=== PATIENT | male | born 1955 | race African-American/Black ===

== ENCOUNTER 2019-06-09 11:06 | Inpatient (IN) | payer MEDICARE, OTHER ==
[~2019-06-09] VITALS: Ht 180.3 cm; Wt 66.2 kg
[2019-06-09] VITALS (12 sets, daily range): BP systolic 99–148; BP diastolic 53–80
[~2019-06-09 11:06] MED LIST: AMLO10TA4 PO; AMLO2.5T45 PO; ASPI-1497 PO; CALC0.5C7 PO; CINA30 PO; CLON0.2T PO; OMEP20TA15 PO; SEVE800T8 PO
[2019-06-09] MEDS ORDERED: KETOROLAC 30MG/ML VIAL IV STA (11:16)
[2019-06-09] MEDS ORDERED: ACETAMINOPHEN 650MG SUPP PR STA (11:16)
[2019-06-09] MEDS ORDERED: SODIUM CHLORIDE 0.9% 1000ML BAG (SEPSIS BOLUS) IV ONE (11:30)
[2019-06-09] MEDS ORDERED: VANCOMYCIN 1 G PREMIX 200 ML IV ONE (11:30)
[2019-06-09] MEDS ORDERED: PIPERACILLIN/TAZ 3.375G PREMIX 50 ML IV ONE (11:30)
[2019-06-09 11:38] LABS: HEMATOCRIT. 44.9 % (42.0-52.0); HEMOGLOBIN. 14.5 g/dL (14.0-18.0); MEAN CORPUSCULAR HEMOGLOBIN 28.4 pg (28.0-32.0); MEAN CORPUSCULAR VOLUME 87.9 fL (80.0-94.0); MEAN PLATELET VOLUME 9.1 fl (7.4-10.4); PLATELET 184 x1000/uL (130-400); RED CELL DISTRIBUTION WIDTH 14.1 % (11.6-14.6)
[2019-06-09 11:46] LABS: CHLORIDE 109 mEq/L (98-107)
[2019-06-09 11:53] LABS: INR 1.3; PROTHROMBIN TIME 13.2 sec (9.6-11.0)
[2019-06-09 12:05] LABS: PLATELET ESTIMATE NORMAL
[2019-06-09 16:01] LABS: CLARITY URINE TURBID (CLEAR); COLOR URINE ORANGE (YELLOW); KETONES URINE TRACE (NEGATIVE); LEUKOCYTE ESTERASE URINE 1+ (NEGATIVE); NITRITE URINE NEGATIVE (NEGATIVE); OCCULT BLOOD URINE 3+ (NEGATIVE); PH URINE 5.5 (4.5-8.0); PROTEIN URINE 3+ (NEGATIVE); SPECIFIC GRAVITY URINE 1.021 (1.005-1.030)
[2019-06-09] MEDS ORDERED: ONDANSETRON HCL 4MG/2ML INJ IV PRN (16:30)
[2019-06-09] MEDS ORDERED: PIPERACILLIN/TAZ 3.375G PREMIX 50 ML IV SCH (16:30)
[2019-06-09] MEDS ORDERED: VANCOMYCIN 1 G PREMIX 200 ML IV SCH (16:30)
[2019-06-09] MEDS ORDERED: METRONIDAZOLE 500 MG PREMIX 100 ML IV SCH (16:30)
[2019-06-09] MEDS ORDERED: DIPHENHYDRAMINE 50MG/ML VIAL IV PRN (16:30)
[2019-06-09] MEDS ORDERED: NOREPINEPHRINE 4MG/250ML PMX 250 ML IV ONE (16:45)
[2019-06-09] MEDS ORDERED: NOREPINEPHRINE 4MG in DEXT 5% WATER 250ML IV PRN (17:30)
[2019-06-09] MEDS: SODIUM CHLORIDE 0.9% 1,000 ML IV SCH (18:00)
[2019-06-09] MEDS: METRONIDAZOLE 500 MG PREMIX 100 ML IV SCH (20:33)
[2019-06-09] MEDS: CEFEPIME 1,000 MG in DEXTROSE 5% WATER 50 ML IV SCH (20:33)
[2019-06-09] MEDS ORDERED: FAMOTIDINE 20MG/2ML VIAL IV SCH (21:00)
[2019-06-09] MEDS: VANCOMYCIN HCL 1000 MG/20 ML ORAL PO SCH (22:21)
[2019-06-10] VITALS (64 sets, daily range): BP systolic 83–128; BP diastolic 25–93
[2019-06-10] MEDS: ACETAMINOPHEN 325MG TABLET PO PRN ×2 (01:48→12:14)
[2019-06-10] MEDS ORDERED: AMLO10TA80 PO (03:19)
[2019-06-10] MEDS ORDERED: MYCO250C PO (03:19)
[2019-06-10] MEDS ORDERED: CYCL25CA PO (03:19)
[2019-06-10] MEDS ORDERED: DILT180T11 PO (03:19)
[2019-06-10] MEDS ORDERED: PRED5TAB48 PO (03:19)
[2019-06-10] MEDS ORDERED: TAMS-11 PO (03:19)
[2019-06-10] MEDS: METRONIDAZOLE 500 MG PREMIX 100 ML IV SCH ×3 (03:44→20:53)
[2019-06-10] MEDS: SODIUM CHLORIDE 0.9% 1,000 ML IV SCH (03:45)
[2019-06-10 05:38] LABS: HEMATOCRIT. 36.7 % (42.0-52.0); HEMOGLOBIN. 11.9 g/dL (14.0-18.0); MEAN CORPUSCULAR HEMOGLOBIN 28.5 pg (28.0-32.0); MEAN CORPUSCULAR VOLUME 87.9 fL (80.0-94.0); MEAN PLATELET VOLUME 9.9 fl (7.4-10.4); PLATELET 105 x1000/uL (130-400); RED BLOOD CELL COUNT 4.17 mill/uL (4.7-6.1); RED CELL DISTRIBUTION WIDTH 14.4 % (11.6-14.6)
[2019-06-10 05:46] LABS: CHLORIDE 118 mEq/L (98-107)
[2019-06-10 06:03] LABS: PHOSPHORUS 2.7 mg/dL (2.5-4.9)
[2019-06-10] MEDS: DEXT 5%/0.9% NACL 1,000 ML IV SCH ×3 (08:07→16:51)
[2019-06-10] MEDS: VANCOMYCIN HCL 1000 MG/20 ML ORAL PO SCH ×2 (08:24→13:47)
[2019-06-10] MEDS: FAMOTIDINE 20MG/2ML VIAL IV SCH (08:24)
[2019-06-10] MEDS ORDERED: HYDROCORTISONE SOD SUCCINATE 100 MG/2 ML VIAL IV NR (12:15)
[2019-06-10] MEDS: MYCOPHENOLATE MOFETIL 250MG CAPSULE PO SCH ×2 (12:19→16:36)
[2019-06-10] MEDS: FOLIC ACID/VITAMIN B COMP W-C TABLET PO SCH (13:47)
[2019-06-10] MEDS: THIAMINE HCL 100MG TABLET PO SCH ×2 (13:47→16:36)
[2019-06-10] MEDS: FOLIC ACID 1MG TABLET PO SCH (13:48)
[2019-06-10] MEDS ORDERED: CYCLOSPORINE, MODIFIED 25MG CAPSULE PO SCH (14:00)
[2019-06-10 14:20] LABS: BG BASE EXCESS -8.9 mmol/L (-2.0-2.0); BG CARBOXYHEMOGLOBIN 0.3 % (0.5-1.5); BG HCO3 ACT 14.8 mmol/L (22.0-26.0); BG METHEMOGLOBIN 0.3 % (0.0-1.5); BG OXYGEN SATURATION 89.9 % (92.0-98.5); BG OXYHEMOGLOBIN 89.4 % (94.0-97.0); BG PCO2 26.3 mmHg (35.0-45.0); BG PH 7.368 (7.350-7.450); BG SAMPLE SITE RIGHT RADIAL; BG TOTAL HEMOGLOBIN 12.8 g/dL (12.0-18.0)
[2019-06-10 14:39] LABS: BG FRACTION INSPIRED OXYGEN 60; BG VENT MODE MASK - SIMPLE
[2019-06-10 14:44] LABS: PLATELET ESTIMATE DECREASED
[2019-06-10] MEDS ORDERED: MAGNESIUM 2 G PREMIX 50 ML IV SCH (16:30)
[2019-06-10] MEDS ORDERED: NOREPINEPHRINE 4 MG in DEXT 5% WATER 246 ML IV PRN (16:30)
[2019-06-10 17:39] LABS: BG BASE EXCESS -9.6 mmol/L (-2.0-2.0); BG CARBOXYHEMOGLOBIN 0.1 % (0.5-1.5); BG DEOXYHEMOGLOBIN 4.3 % (0.0-5.0); BG FRACTION INSPIRED OXYGEN 100; BG HCO3 ACT 14.7 mmol/L (22.0-26.0); BG METHEMOGLOBIN 0.1 % (0.0-1.5); BG OXYGEN SATURATION 95.7 % (92.0-98.5); BG OXYHEMOGLOBIN 95.5 % (94.0-97.0); BG PCO2 27.4 mmHg (35.0-45.0); BG PH 7.346 (7.350-7.450); BG PO2 80.4 mmHg (75.0-100.0); BG SAMPLE SITE RIGHT RADIAL; BG TOTAL HEMOGLOBIN 11.4 g/dL (12.0-18.0); BG VENT MODE MASK - NRB
[2019-06-10] MEDS: CEFEPIME 1,000 MG in DEXTROSE 5% WATER 50 ML IV SCH (20:52)
[2019-06-10] MEDS: CYCLOSPORINE PO SCH (20:53)
[2019-06-10] MEDS: HYDROCORTISONE SOD SUCCINATE 100 MG/2 ML VIAL IV SCH (22:21)
[2019-06-11] VITALS (25 sets, daily range): BP systolic 106–135; BP diastolic 68–92
[2019-06-11] MEDS: METRONIDAZOLE 500 MG PREMIX 100 ML IV SCH ×3 (04:58→20:43)
[2019-06-11] MEDS: DEXT 5%/0.9% NACL 1,000 ML IV SCH ×2 (04:59→14:30)
[2019-06-11] MEDS: HYDROCORTISONE SOD SUCCINATE 100 MG/2 ML VIAL IV SCH ×3 (05:00→21:55)
[2019-06-11 06:15] LABS: HEMATOCRIT. 33.2 % (42.0-52.0); MEAN CORPUSCULAR HEMOGLOBIN 28.9 pg (28.0-32.0); MEAN CORPUSCULAR VOLUME 86.8 fL (80.0-94.0); MEAN PLATELET VOLUME 10.1 fl (7.4-10.4); PLATELET 92 x1000/uL (130-400); RED BLOOD CELL COUNT 3.82 mill/uL (4.7-6.1); RED CELL DISTRIBUTION WIDTH 14.4 % (11.6-14.6)
[2019-06-11 06:20] LABS: CHLORIDE 122 mEq/L (98-107)
[2019-06-11] MEDS ORDERED: PREDNISONE 5MG TABLET PO SCH (09:00)
[2019-06-11] MEDS: CYCLOSPORINE PO SCH ×2 (09:04→20:43)
[2019-06-11] MEDS: FAMOTIDINE 20MG/2ML VIAL IV SCH (09:04)
[2019-06-11] MEDS: MYCOPHENOLATE MOFETIL 250MG CAPSULE PO SCH ×2 (09:04→17:48)
[2019-06-11] MEDS: FOLIC ACID 1MG TABLET PO SCH (09:04)
[2019-06-11] MEDS: THIAMINE HCL 100MG TABLET PO SCH ×2 (09:04→17:48)
[2019-06-11] MEDS: FOLIC ACID/VITAMIN B COMP W-C TABLET PO SCH (09:04)
[2019-06-11 11:17] LABS: PLATELET ESTIMATE SLIGHTLY DECREASED
[2019-06-11] MEDS: CEFEPIME 1,000 MG in DEXTROSE 5% WATER 50 ML IV SCH (20:43)
[2019-06-12] VITALS (24 sets, daily range): BP systolic 117–153; BP diastolic 72–95
[2019-06-12] MEDS: DEXT 5%/0.9% NACL 1,000 ML IV SCH ×2 (01:44→12:38)
[2019-06-12] MEDS: IPRATROPIUM/ALBUTEROL 0.5-3(2.5)MG/3ML NEB HHN PRN (01:45)
[2019-06-12 03:25] LABS: PHOSPHORUS 2.6 mg/dL (2.5-4.9)
[2019-06-12] MEDS: METRONIDAZOLE 500 MG PREMIX 100 ML IV SCH ×3 (04:55→20:33)
[2019-06-12] MEDS: HYDROCORTISONE SOD SUCCINATE 100 MG/2 ML VIAL IV SCH ×3 (04:57→22:23)
[2019-06-12] MEDS: MYCOPHENOLATE MOFETIL 250MG CAPSULE PO SCH ×2 (08:44→17:26)
[2019-06-12] MEDS: FOLIC ACID/VITAMIN B COMP W-C TABLET PO SCH (08:45)
[2019-06-12] MEDS: FOLIC ACID 1MG TABLET PO SCH (08:45)
[2019-06-12] MEDS: CYCLOSPORINE PO SCH ×2 (08:45→22:25)
[2019-06-12] MEDS: FAMOTIDINE 20MG/2ML VIAL IV SCH (08:45)
[2019-06-12] MEDS: THIAMINE HCL 100MG TABLET PO SCH (08:45)
[2019-06-12] MEDS: CEFEPIME 1,000 MG in DEXTROSE 5% WATER 50 ML IV SCH (20:33)
[2019-06-13] VITALS (98 sets, daily range): BP systolic 73–176; BP diastolic 52–105
[2019-06-13] MEDS: ACETYLCYSTEINE 200MG/ML 20% VIAL 4ML INH SCH ×3 (00:20→15:37)
[2019-06-13] MEDS: IPRATROPIUM/ALBUTEROL 0.5-3(2.5)MG/3ML NEB HHN PRN ×5 (00:21→20:43)
[2019-06-13 01:20] LABS: BG BASE EXCESS -6.9 mmol/L (-2.0-2.0); BG CARBOXYHEMOGLOBIN 0.3 % (0.5-1.5); BG DEOXYHEMOGLOBIN 16.2 % (0.0-5.0); BG FRACTION INSPIRED OXYGEN 100; BG HCO3 ACT 16.8 mmol/L (22.0-26.0); BG METHEMOGLOBIN 0.2 % (0.0-1.5); BG OXYGEN SATURATION 83.7 % (92.0-98.5); BG OXYHEMOGLOBIN 83.3 % (94.0-97.0); BG PCO2 28.8 mmHg (35.0-45.0); BG PH 7.383 (7.350-7.450); BG PO2 46.9 mmHg (75.0-100.0); BG SAMPLE SITE RIGHT BRACHIAL; BG TOTAL HEMOGLOBIN 13.2 g/dL (12.0-18.0); BG VENT MODE MASK - NRB
[2019-06-13] MEDS ORDERED: SUCCINYLCHOLINE CHLORIDE 200MG/10ML IV ONE (01:55)
[2019-06-13] MEDS ORDERED: ETOMIDATE 2MG/ML 10ML VIAL IV ONE (01:55)
[2019-06-13] MEDS: PROPOFOL 10MG/ML 100ML 100 ML IV PRN ×5 (02:11→20:00)
[2019-06-13 02:27] LABS: BG BASE EXCESS -9.8 mmol/L (-2.0-2.0); BG CARBOXYHEMOGLOBIN 0.3 % (0.5-1.5); BG DEOXYHEMOGLOBIN 9.4 % (0.0-5.0); BG FRACTION INSPIRED OXYGEN 100; BG HCO3 ACT 16.2 mmol/L (22.0-26.0); BG METHEMOGLOBIN 0.3 % (0.0-1.5); BG OXYGEN SATURATION 90.5 % (92.0-98.5); BG PCO2 36.2 mmHg (35.0-45.0); BG PH 7.269 (7.350-7.450); BG PO2 68.4 mmHg (75.0-100.0); BG SAMPLE SITE LEFT BRACHIAL; BG TIDAL VOLUME(mL) 500 mL; BG TOTAL HEMOGLOBIN 12.5 g/dL (12.0-18.0); BG VENT MODE VENT - A/C; BG VENT RATE 14 set
[2019-06-13] MEDS: METRONIDAZOLE 500 MG PREMIX 100 ML IV SCH ×3 (04:57→20:23)
[2019-06-13] MEDS: HYDROCORTISONE SOD SUCCINATE 100 MG/2 ML VIAL IV SCH ×3 (05:53→23:06)
[2019-06-13] MEDS: FAMOTIDINE 20MG/2ML VIAL IV SCH (09:06)
[2019-06-13] MEDS: MYCOPHENOLATE MOFETIL 250MG CAPSULE PO SCH ×2 (09:06→16:34)
[2019-06-13] MEDS: CYCLOSPORINE PO SCH ×2 (09:07→21:43)
[2019-06-13] MEDS ORDERED: DEXT 5%/0.45% NACL 1000ML 1,000 ML IV SCH (10:30)
[2019-06-13 10:39] LABS: HEMOGLOBIN. 10.6 g/dL (14.0-18.0); MEAN CORPUSCULAR HEMOGLOBIN 28.4 pg (28.0-32.0); MEAN CORPUSCULAR VOLUME 85.7 fL (80.0-94.0); MEAN PLATELET VOLUME 8.8 fl (7.4-10.4); PLATELET 69 x1000/uL (130-400); RED BLOOD CELL COUNT 3.74 mill/uL (4.7-6.1)
[2019-06-13] MEDS ORDERED: PROPOFOL 10MG/ML 100ML 100 ML IV PRN (11:00)
[2019-06-13 12:01] LABS: PLATELET ESTIMATE DECREASED
[2019-06-13] MEDS: POTASSIUM CHLORIDE 20MEQ/PACKET NG SCH ×2 (12:29→18:30)
[2019-06-13 12:44] LABS: BG BASE EXCESS -6.3 mmol/L (-2.0-2.0); BG CARBOXYHEMOGLOBIN 0.3 % (0.5-1.5); BG DEOXYHEMOGLOBIN 1.2 % (0.0-5.0); BG FRACTION INSPIRED OXYGEN 100; BG HCO3 ACT 17.9 mmol/L (22.0-26.0); BG METHEMOGLOBIN 0.1 % (0.0-1.5); BG OXYGEN SATURATION 98.8 % (92.0-98.5); BG OXYHEMOGLOBIN 98.4 % (94.0-97.0); BG PCO2 31.4 mmHg (35.0-45.0); BG PH 7.374 (7.350-7.450); BG PO2 290.4 mmHg (75.0-100.0); BG SAMPLE SITE RIGHT RADIAL; BG TIDAL VOLUME(mL) 500 mL; BG TOTAL HEMOGLOBIN 11.2 g/dL (12.0-18.0); BG VENT MODE VENT - A/C; BG VENT RATE 14 set
[2019-06-13 13:07] LABS: CYCLOSPORINE 39 ng/mL (100-400)
[2019-06-13] MEDS: DEXT 5% WATER + KCL 20MEQ/L 1,000 ML IV SCH (13:45)
[2019-06-13] MEDS ORDERED: KCL 20MEQ/100ML PREMIX 100 ML IV NR (14:00)
[2019-06-13] MEDS ORDERED: POTASSIUM PHOS,M-BASIC-D-BASIC 20 MMOL in DEXT 5% WATER 243.3333 ML IV NR (14:00)
[2019-06-13] MEDS ORDERED: SODIUM BICARBONATE 8.4% 1 MEQ/ML 50ML SYR IV NR (16:15)
[2019-06-13] MEDS: CITRIC ACID/SODIUM CITRATE SOLN 30ML UDC PO SCH (16:34)
[2019-06-13] MEDS: CEFEPIME 1,000 MG in DEXTROSE 5% WATER 50 ML IV SCH (20:23)
[2019-06-14] VITALS (91 sets, daily range): BP systolic 104–170; BP diastolic 68–90
[2019-06-14] MEDS: METRONIDAZOLE 500 MG PREMIX 100 ML IV SCH ×3 (04:03→20:58)
[2019-06-14] MEDS: IPRATROPIUM/ALBUTEROL 0.5-3(2.5)MG/3ML NEB HHN PRN ×3 (05:11→15:53)
[2019-06-14] MEDS: ACETYLCYSTEINE 200MG/ML 20% VIAL 4ML INH SCH ×3 (05:11→15:54)
[2019-06-14 05:38] LABS: HEMATOCRIT. 32.3 % (42.0-52.0); MEAN CORPUSCULAR HEMOGLOBIN 29.3 pg (28.0-32.0); MEAN CORPUSCULAR VOLUME 86.5 fL (80.0-94.0); MEAN PLATELET VOLUME 11.1 fl (7.4-10.4); PLATELET 90 x1000/uL (130-400); RED BLOOD CELL COUNT 3.74 mill/uL (4.7-6.1); RED CELL DISTRIBUTION WIDTH 15.1 % (11.6-14.6)
[2019-06-14] MEDS: HYDROCORTISONE SOD SUCCINATE 100 MG/2 ML VIAL IV SCH ×3 (05:59→22:28)
[2019-06-14 06:26] LABS: PHOSPHORUS 2.6 mg/dL (2.5-4.9)
[2019-06-14 09:18] LABS: BG BASE EXCESS -3.5 mmol/L (-2.0-2.0); BG CARBOXYHEMOGLOBIN 0.3 % (0.5-1.5); BG DEOXYHEMOGLOBIN 2.3 % (0.0-5.0); BG FRACTION INSPIRED OXYGEN 65; BG HCO3 ACT 21.2 mmol/L (22.0-26.0); BG METHEMOGLOBIN 0.1 % (0.0-1.5); BG OXYGEN SATURATION 97.7 % (92.0-98.5); BG OXYHEMOGLOBIN 97.3 % (94.0-97.0); BG PCO2 36.8 mmHg (35.0-45.0); BG PH 7.378 (7.350-7.450); BG PO2 127.8 mmHg (75.0-100.0); BG SAMPLE SITE RIGHT RADIAL; BG TIDAL VOLUME(mL) 500 mL; BG TOTAL HEMOGLOBIN 9.3 g/dL (12.0-18.0); BG VENT MODE VENT - A/C; BG VENT RATE 14 set
[2019-06-14] MEDS ORDERED: POTASSIUM CHLORIDE 20MEQ/PACKET NG NR (09:34)
[2019-06-14] MEDS: CITRIC ACID/SODIUM CITRATE SOLN 30ML UDC PO SCH ×2 (10:47→18:24)
[2019-06-14] MEDS: DEXT 5% WATER + KCL 20MEQ/L 1,000 ML IV SCH (10:47)
[2019-06-14] MEDS: FAMOTIDINE 20MG/2ML VIAL IV SCH (10:48)
[2019-06-14] MEDS: CYCLOSPORINE PO SCH ×2 (10:48→21:52)
[2019-06-14] MEDS: MYCOPHENOLATE MOFETIL 250MG CAPSULE PO SCH ×2 (10:48→18:25)
[2019-06-14] MEDS: FENTANYL CITRATE/PF 500 MCG in SODIUM CHLORIDE 0.9% 40 ML IV PRN ×2 (13:22→23:15)
[2019-06-14 13:23] LABS: PLATELET ESTIMATE DECREASED
[2019-06-14] MEDS: MIDAZOLAM HCL 50 MG in DEXTROSE 5% WATER 40 ML IV PRN (14:20)
[2019-06-14] MEDS: CEFEPIME 1,000 MG in DEXTROSE 5% WATER 50 ML IV SCH (20:13)
[2019-06-15] VITALS (52 sets, daily range): BP systolic 88–157; BP diastolic 64–98
[2019-06-15] MEDS: ACETYLCYSTEINE 200MG/ML 20% VIAL 4ML INH SCH ×3 (00:27→14:44)
[2019-06-15] MEDS: IPRATROPIUM/ALBUTEROL 0.5-3(2.5)MG/3ML NEB HHN PRN ×3 (00:27→14:45)
[2019-06-15] MEDS: MIDAZOLAM HCL 50 MG in DEXTROSE 5% WATER 40 ML IV PRN (01:58)
[2019-06-15] MEDS: METRONIDAZOLE 500 MG PREMIX 100 ML IV SCH ×3 (03:46→20:43)
[2019-06-15] MEDS: DEXT 5% WATER + KCL 20MEQ/L 1,000 ML IV SCH (04:54)
[2019-06-15 05:43] LABS: HEMATOCRIT. 32.4 % (42.0-52.0); HEMOGLOBIN. 10.9 g/dL (14.0-18.0); MEAN CORPUSCULAR HEMOGLOBIN 29.1 pg (28.0-32.0); MEAN CORPUSCULAR VOLUME 86.4 fL (80.0-94.0); MEAN PLATELET VOLUME 11.6 fl (7.4-10.4); PLATELET 151 x1000/uL (130-400); RED BLOOD CELL COUNT 3.74 mill/uL (4.7-6.1); RED CELL DISTRIBUTION WIDTH 15.2 % (11.6-14.6)
[2019-06-15 06:14] LABS: PHOSPHORUS 1.7 mg/dL (2.5-4.9)
[2019-06-15] MEDS: HYDROCORTISONE SOD SUCCINATE 100 MG/2 ML VIAL IV SCH (06:36)
[2019-06-15] MEDS: FAMOTIDINE 20MG/2ML VIAL IV SCH (08:45)
[2019-06-15] MEDS: CITRIC ACID/SODIUM CITRATE SOLN 30ML UDC PO SCH ×2 (08:45→19:32)
[2019-06-15] MEDS: MYCOPHENOLATE MOFETIL 250MG CAPSULE PO SCH ×2 (08:45→19:41)
[2019-06-15] MEDS: CYCLOSPORINE PO SCH (09:00)
[2019-06-15 09:36] LABS: BG BASE EXCESS -4.3 mmol/L (-2.0-2.0); BG CARBOXYHEMOGLOBIN 0.3 % (0.5-1.5); BG DEOXYHEMOGLOBIN 2.3 % (0.0-5.0); BG FRACTION INSPIRED OXYGEN 45; BG HCO3 ACT 20.8 mmol/L (22.0-26.0); BG METHEMOGLOBIN 0.3 % (0.0-1.5); BG OXYGEN SATURATION 97.7 % (92.0-98.5); BG OXYHEMOGLOBIN 97.1 % (94.0-97.0); BG PCO2 37.9 mmHg (35.0-45.0); BG PH 7.357 (7.350-7.450); BG PO2 116.2 mmHg (75.0-100.0); BG SAMPLE SITE RIGHT RADIAL; BG TIDAL VOLUME(mL) 500 mL; BG TOTAL HEMOGLOBIN 10.8 g/dL (12.0-18.0); BG VENT MODE VENT - A/C; BG VENT RATE 14 set
[2019-06-15] MEDS: CYCLOSPORINE MODIFIED PEG SCH ×2 (13:01→20:44)
[2019-06-15] MEDS ORDERED: POTASSIUM PHOS,M-BASIC-D-BASIC 20 MMOL in DEXT 5% WATER 243.3333 ML IV NR (13:30)
[2019-06-15 13:39] LABS: PLATELET ESTIMATE NORMAL
[2019-06-15] MEDS: PREDNISONE 20MG TABLET PO SCH (15:38)
[2019-06-15 19:14] LABS: BG BASE EXCESS 1.3 mmol/L (-2.0-2.0); BG CARBOXYHEMOGLOBIN 0.4 % (0.5-1.5); BG DEOXYHEMOGLOBIN 9.6 % (0.0-5.0); BG FRACTION INSPIRED OXYGEN 45; BG HCO3 ACT 24.6 mmol/L (22.0-26.0); BG METHEMOGLOBIN 0.1 % (0.0-1.5); BG OXYGEN SATURATION 90.4 % (92.0-98.5); BG OXYHEMOGLOBIN 89.9 % (94.0-97.0); BG PCO2 34.5 mmHg (35.0-45.0); BG PH 7.471 (7.350-7.450); BG PO2 53.6 mmHg (75.0-100.0); BG SAMPLE SITE LEFT BRACHIAL; BG TOTAL HEMOGLOBIN 11.6 g/dL (12.0-18.0); BG VENT MODE VAPOTHERM
[2019-06-15] MEDS ORDERED: BLOOD SUGAR DIAGNOSTIC STRIP TEST SCH (21:00)
[2019-06-15] MEDS: CEFEPIME 1,000 MG in DEXTROSE 5% WATER 50 ML IV SCH (21:45)
[2019-06-16] VITALS (27 sets, daily range): BP systolic 126–153; BP diastolic 47–91
[2019-06-16] MEDS: ACETYLCYSTEINE 200MG/ML 20% VIAL 4ML INH SCH ×3 (00:22→15:04)
[2019-06-16] MEDS: IPRATROPIUM/ALBUTEROL 0.5-3(2.5)MG/3ML NEB HHN PRN ×3 (00:23→15:04)
[2019-06-16] MEDS: DEXT 5% WATER + KCL 20MEQ/L 1,000 ML IV SCH ×2 (02:23→20:38)
[2019-06-16] MEDS: METRONIDAZOLE 500 MG PREMIX 100 ML IV SCH ×3 (04:43→20:36)
[2019-06-16 05:53] LABS: HEMATOCRIT. 34.9 % (42.0-52.0); HEMOGLOBIN. 11.7 g/dL (14.0-18.0); MEAN CORPUSCULAR HEMOGLOBIN 28.7 pg (28.0-32.0); MEAN CORPUSCULAR VOLUME 85.6 fL (80.0-94.0); MEAN PLATELET VOLUME 10.4 fl (7.4-10.4); PLATELET 222 x1000/uL (130-400); RED BLOOD CELL COUNT 4.08 mill/uL (4.7-6.1); RED CELL DISTRIBUTION WIDTH 14.5 % (11.6-14.6)
[2019-06-16 05:54] LABS: CHLORIDE 107 mEq/L (98-107)
[2019-06-16 08:01] LABS: BG BASE EXCESS 3.7 mmol/L (-2.0-2.0); BG CARBOXYHEMOGLOBIN 0.2 % (0.5-1.5); BG DEOXYHEMOGLOBIN 5.4 % (0.0-5.0); BG FRACTION INSPIRED OXYGEN 42; BG HCO3 ACT 26.3 mmol/L (22.0-26.0); BG METHEMOGLOBIN 0.3 % (0.0-1.5); BG OXYGEN SATURATION 94.6 % (92.0-98.5); BG OXYHEMOGLOBIN 94.1 % (94.0-97.0); BG PCO2 33.5 mmHg (35.0-45.0); BG PH 7.513 (7.350-7.450); BG PO2 72.2 mmHg (75.0-100.0); BG SAMPLE SITE RIGHT BRACHIAL; BG TOTAL HEMOGLOBIN 13.7 g/dL (12.0-18.0); BG VENT MODE VAPOTHERM
[2019-06-16] MEDS: FAMOTIDINE 20MG/2ML VIAL IV SCH (09:35)
[2019-06-16] MEDS: PREDNISONE 20MG TABLET PO SCH (09:36)
[2019-06-16] MEDS: MYCOPHENOLATE MOFETIL 250MG CAPSULE PO SCH ×2 (09:36→20:35)
[2019-06-16] MEDS: CITRIC ACID/SODIUM CITRATE SOLN 30ML UDC PO SCH ×2 (09:36→18:15)
[2019-06-16] MEDS: CYCLOSPORINE MODIFIED PEG SCH (09:37)
[2019-06-16] MEDS ORDERED: MAGNESIUM 2 G PREMIX 50 ML IV NR (10:30)
[2019-06-16] MEDS ORDERED: POTASSIUM CHLORIDE 20MEQ TABLET SR PO NR (11:15)
[2019-06-16] MEDS ORDERED: POTASSIUM PHOS,M-BASIC-D-BASIC 20 MMOL in DEXT 5% WATER 243.3333 ML IV NR (14:00)
[2019-06-16 14:10] LABS: CYCLOSPORINE 55 ng/mL (100-400)
[2019-06-16 16:41] LABS: PLATELET ESTIMATE NORMAL
[2019-06-16] MEDS: CYCLOSPORINE PO SCH (20:36)
[2019-06-16] MEDS: CEFEPIME 1,000 MG in DEXTROSE 5% WATER 50 ML IV SCH (20:36)
[2019-06-17] VITALS (11 sets, daily range): BP systolic 98–147; BP diastolic 69–90
[2019-06-17] MEDS: IPRATROPIUM/ALBUTEROL 0.5-3(2.5)MG/3ML NEB HHN PRN ×2 (00:53→08:27)
[2019-06-17] MEDS: ACETYLCYSTEINE 200MG/ML 20% VIAL 4ML INH SCH ×3 (00:54→17:00)
[2019-06-17] MEDS: PREDNISONE 20MG TABLET PO SCH (08:13)
[2019-06-17] MEDS: CITRIC ACID/SODIUM CITRATE SOLN 30ML UDC PO SCH ×2 (08:13→17:22)
[2019-06-17] MEDS: CYCLOSPORINE PO SCH ×2 (08:13→21:19)
[2019-06-17] MEDS: MYCOPHENOLATE MOFETIL 250MG CAPSULE PO SCH ×2 (08:13→17:22)
[2019-06-17 08:29] LABS: BG BASE EXCESS 9.7 mmol/L (-2.0-2.0); BG CARBOXYHEMOGLOBIN 0.3 % (0.5-1.5); BG DEOXYHEMOGLOBIN 3.8 % (0.0-5.0); BG FRACTION INSPIRED OXYGEN 36; BG HCO3 ACT 33.4 mmol/L (22.0-26.0); BG METHEMOGLOBIN 0.1 % (0.0-1.5); BG OXYGEN SATURATION 96.2 % (92.0-98.5); BG OXYHEMOGLOBIN 95.8 % (94.0-97.0); BG PH 7.519 (7.350-7.450); BG PO2 79.7 mmHg (75.0-100.0); BG SAMPLE SITE RIGHT RADIAL; BG TOTAL HEMOGLOBIN 12.3 g/dL (12.0-18.0); BG VENT MODE VAPOTHERM
[2019-06-17 10:26] LABS: BASOPHILS % 0.2 % (0.0-2.0); EOSINOPHILS % 0.3 % (0.0-5.0); HEMATOCRIT. 36.4 % (42.0-52.0); LYMPHOCYTES % 12.9 % (20.0-50.0); MEAN CORPUSCULAR HEMOGLOBIN 28.1 pg (28.0-32.0); MEAN CORPUSCULAR VOLUME 85.6 fL (80.0-94.0); MEAN PLATELET VOLUME 9.9 fl (7.4-10.4); MONOCYTES % 7.7 % (2.0-8.0); NEUTROPHILS % 78.9 % (40.0-76.0); PLATELET 246 x1000/uL (130-400); RED BLOOD CELL COUNT 4.25 mill/uL (4.7-6.1); RED CELL DISTRIBUTION WIDTH 14.8 % (11.6-14.6)
[2019-06-17 10:36] LABS: CHLORIDE 102 mEq/L (98-107)
[2019-06-17] MEDS ORDERED: POTASSIUM CHLORIDE 20MEQ TABLET SR PO NR (11:15)
[2019-06-17] MEDS ORDERED: POTASSIUM CHLORIDE INJ 40 MEQ in DEXT 5% WATER 250 ML IV NR (13:00)
[2019-06-17] MEDS: CEFEPIME 1,000 MG in DEXTROSE 5% WATER 50 ML IV SCH (18:33)
[2019-06-17] MEDS: METRONIDAZOLE 500MG TABLET PO SCH (21:19)
[2019-06-18] VITALS (12 sets, daily range): BP systolic 103–149; BP diastolic 53–89
[2019-06-18] MEDS: DEXT 5% WATER + KCL 20MEQ/L 1,000 ML IV SCH ×2 (00:11→18:36)
[2019-06-18] MEDS: IPRATROPIUM/ALBUTEROL 0.5-3(2.5)MG/3ML NEB HHN PRN (00:41)
[2019-06-18] MEDS: ACETYLCYSTEINE 200MG/ML 20% VIAL 4ML INH SCH ×2 (00:42→00:57)
[2019-06-18 05:09] LABS: CHLORIDE 103 mEq/L (98-107)
[2019-06-18] MEDS: CEFEPIME 1,000 MG in DEXTROSE 5% WATER 50 ML IV SCH ×2 (05:17→18:36)
[2019-06-18 06:28] LABS: BASOPHILS % 0.2 % (0.0-2.0); EOSINOPHILS % 0.4 % (0.0-5.0); HEMATOCRIT. 36.7 % (42.0-52.0); MEAN CORPUSCULAR HEMOGLOBIN 28.5 pg (28.0-32.0); MEAN CORPUSCULAR VOLUME 86.8 fL (80.0-94.0); MONOCYTES % 7.4 % (2.0-8.0); PLATELET 228 x1000/uL (130-400); RED BLOOD CELL COUNT 4.23 mill/uL (4.7-6.1); RED CELL DISTRIBUTION WIDTH 14.2 % (11.6-14.6)
[2019-06-18 07:32] LABS: BG BASE EXCESS 5.1 mmol/L (-2.0-2.0); BG CARBOXYHEMOGLOBIN 0.2 % (0.5-1.5); BG FRACTION INSPIRED OXYGEN 28; BG METHEMOGLOBIN 0.3 % (0.0-1.5); BG OXYHEMOGLOBIN 96.5 % (94.0-97.0); BG PCO2 39.9 mmHg (35.0-45.0); BG PH 7.479 (7.350-7.450); BG PO2 95.5 mmHg (75.0-100.0); BG SAMPLE SITE RIGHT BRACHIAL; BG TOTAL HEMOGLOBIN 12.2 g/dL (12.0-18.0); BG VENT MODE NASAL CANNULA
[2019-06-18] MEDS: PREDNISONE 20MG TABLET PO SCH (09:44)
[2019-06-18] MEDS: CYCLOSPORINE PO SCH ×2 (09:44→20:55)
[2019-06-18] MEDS: CITRIC ACID/SODIUM CITRATE SOLN 30ML UDC PO SCH ×2 (09:44→18:36)
[2019-06-18] MEDS: METRONIDAZOLE 500MG TABLET PO SCH ×2 (09:44→20:55)
[2019-06-18] MEDS: MYCOPHENOLATE MOFETIL 250MG CAPSULE PO SCH ×2 (09:44→18:36)
[2019-06-18] MEDS: POTASSIUM CHLORIDE 20MEQ TABLET SR PO SCH (12:31)
[2019-06-19] VITALS (11 sets, daily range): BP systolic 100–143; BP diastolic 61–89
[2019-06-19] MEDS: CEFEPIME 1,000 MG in DEXTROSE 5% WATER 50 ML IV SCH ×2 (05:33→18:43)
[2019-06-19 06:46] LABS: BASOPHILS % 0.7 % (0.0-2.0); EOSINOPHILS % 0.5 % (0.0-5.0); HEMATOCRIT. 36.8 % (42.0-52.0); HEMOGLOBIN. 12.1 g/dL (14.0-18.0); LYMPHOCYTES % 10.8 % (20.0-50.0); MEAN CORPUSCULAR HEMOGLOBIN 28.7 pg (28.0-32.0); MEAN CORPUSCULAR VOLUME 87.3 fL (80.0-94.0); MONOCYTES % 6.1 % (2.0-8.0); NEUTROPHILS % 81.9 % (40.0-76.0); PLATELET 198 x1000/uL (130-400); RED BLOOD CELL COUNT 4.22 mill/uL (4.7-6.1); RED CELL DISTRIBUTION WIDTH 14.4 % (11.6-14.6)
[2019-06-19 07:11] LABS: CHLORIDE 103 mEq/L (98-107)
[2019-06-19] MEDS: IPRATROPIUM/ALBUTEROL 0.5-3(2.5)MG/3ML NEB HHN PRN (08:24)
[2019-06-19] MEDS: ACETYLCYSTEINE 200MG/ML 20% VIAL 4ML INH SCH (08:25)
[2019-06-19] MEDS: METRONIDAZOLE 500MG TABLET PO SCH ×2 (09:47→20:38)
[2019-06-19] MEDS: MYCOPHENOLATE MOFETIL 250MG CAPSULE PO SCH ×2 (09:47→16:53)
[2019-06-19] MEDS: POTASSIUM CHLORIDE 20MEQ TABLET SR PO SCH (09:47)
[2019-06-19] MEDS: PREDNISONE 20MG TABLET PO SCH (09:47)
[2019-06-19] MEDS: CITRIC ACID/SODIUM CITRATE SOLN 30ML UDC PO SCH ×2 (09:47→17:01)
[2019-06-19] MEDS: CYCLOSPORINE PO SCH ×2 (09:52→20:39)
[2019-06-19] MEDS ORDERED: MAGNESIUM 1 G PREMIX 100 ML IV SCH (15:00)
[2019-06-20] MEDS ORDERED: PREDNISONE 10MG TABLET PO SCH (09:00)
[2019-06-27] MEDS ORDERED: PREDNISONE 5MG TABLET PO SCH (09:00)
== END 2019-06-19 21:35 | DRG 871 ==
LOC: ER 11:06 → MICUSO 14:04 → EDBEDREQ 14:11 → EDBEDREQTM 14:11 → EDBEDREQSVC 14:11 → ENRESERV 16:06 → 5EST 06-16 14:08
PROVIDERS: ADMIT Internal Medicine; ATTEND Internal Medicine
PROC: B54BZZA Ultrasonography of Right Lower Extremity Veins, Guidance (ICD-10-PCS; 2019-06-09)
PROC: 06HY33Z Insertion of Infusion Device into Lower Vein, Percutaneous Approach (ICD-10-PCS; 2019-06-09)
PROC: 0BH17EZ Insertion of Endotracheal Airway into Trachea, Via Natural or Artificial Opening (ICD-10-PCS; principal; 2019-06-13)
PROC: 5A1945Z Respiratory Ventilation, 24-96 Consecutive Hours (ICD-10-PCS; 2019-06-13)
DX: A41.52 Sepsis due to Pseudomonas (principal); L89.154 Pressure ulcer of sacral region, stage 4; R65.21 Severe sepsis with septic shock; J69.0 Pneumonitis due to inhalation of food and vomit; G82.50 Quadriplegia, unspecified; G93.41 Metabolic encephalopathy; J96.01 Acute respiratory failure with hypoxia; D68.9 Coagulation defect, unspecified; I69.351 Hemiplegia and hemiparesis following cerebral infarction affecting right dominant side; N17.9 Acute kidney failure, unspecified; N39.0 Urinary tract infection, site not specified; E87.2 Acidosis; A09 Infectious gastroenteritis and colitis, unspecified; E87.0 Hyperosmolality and hypernatremia; E87.1 Hypo-osmolality and hyponatremia; G62.81 Critical illness polyneuropathy; J91.8 Pleural effusion in other conditions classified elsewhere; T86.19 Other complication of kidney transplant; E46 Unspecified protein-calorie malnutrition; D64.9 Anemia, unspecified; D69.6 Thrombocytopenia, unspecified; E11.22 Type 2 diabetes mellitus with diabetic chronic kidney disease; E11.649 Type 2 diabetes mellitus with hypoglycemia without coma; E83.39 Other disorders of phosphorus metabolism; E83.42 Hypomagnesemia; E86.0 Dehydration; R26.9 Unspecified abnormalities of gait and mobility; E87.8 Other disorders of electrolyte and fluid balance, not elsewhere classified; I12.9 Hypertensive chronic kidney disease with stage 1 through stage 4 chronic kidney disease, or unspecified chronic kidney disease; N18.9 Chronic kidney disease, unspecified; T38.0X5A Adverse effect of glucocorticoids and synthetic analogues, initial encounter; E87.6 Hypokalemia; K75.9 Inflammatory liver disease, unspecified; R13.10 Dysphagia, unspecified; Y83.0 Surgical operation with transplant of whole organ as the cause of abnormal reaction of the patient, or of later complication, without mention of misadventure at the time of the procedure; Z86.61 Personal history of infections of the central nervous system; Z79.82 Long term (current) use of aspirin; Z79.899 Other long term (current) drug therapy; Y92.89 Other specified places as the place of occurrence of the external cause; Z68.20 Body mass index [BMI] 20.0-20.9, adult
CPT/HCPCS: 31500; 36415; 36600; 71045; 71250; 74176; 80048; 80053; 80076; 80158; 81003; 82270; 82375; 82805; 82962; 83605; 83735; 84100; 84145; 84478; 84484; 85025; 87015; 87045; 87070; 87077; 87186; 87427; 87449; 87493; 87804; 89055; 92610; 93005; 93306; 93970; 94002; 94003; 94640; 94667; 97162; 97164; 99291; J0330; J0692; J1200; J1720; J1885; J2250; J2405; J2543; J2704; J3010; J3370; J3475; J3480; J3490; J7030; J7042; J7060; J7502; J7512; J7517; J7608

== ENCOUNTER 2019-06-19 21:38 | Inpatient (IN) | payer MEDICARE, OTHER ==
[~2019-06-19] VITALS: Ht 180.3 cm; Wt 66.2 kg
[2019-06-19 21:38] VITALS: BP 105/69
[~2019-06-19 21:38] MED LIST changes: +AMLO10TA80 PO; +CYCL25CA PO; +DILT180T11 PO; +MYCO250C PO; +PRED5TAB48 PO; +TAMS-11 PO
[2019-06-19 22:00] VITALS: BP 105/69
[2019-06-19] MEDS ORDERED: HYDROCODONE/ACETAMINOPHEN 5/325MG TABLET PO PRN (22:30)
[2019-06-19] MEDS ORDERED: DIPHENHYDRAMINE 50MG/ML VIAL IV PRN (22:30)
[2019-06-19] MEDS ORDERED: IPRATROPIUM/ALBUTEROL 0.5-3(2.5)MG/3ML NEB HHN PRN (22:30)
[2019-06-19] MEDS ORDERED: ONDANSETRON HCL 4MG/2ML INJ IV PRN (22:30)
[2019-06-20] MEDS: CEFEPIME 1,000 MG in DEXTROSE 5% WATER 50 ML IV SCH ×2 (06:07→18:12)
[2019-06-20 07:06] LABS: CHLORIDE 107 mEq/L (98-107)
[2019-06-20 07:10] LABS: HEMATOCRIT. 35.4 % (42.0-52.0); HEMOGLOBIN. 11.8 g/dL (14.0-18.0); MEAN CORPUSCULAR HEMOGLOBIN 28.8 pg (28.0-32.0); MEAN CORPUSCULAR VOLUME 86.3 fL (80.0-94.0); MEAN PLATELET VOLUME 10.2 fl (7.4-10.4); PLATELET 226 x1000/uL (130-400); RED CELL DISTRIBUTION WIDTH 14.6 % (11.6-14.6)
[2019-06-20] MEDS: PREDNISONE 10MG TABLET PO SCH (08:08)
[2019-06-20] MEDS: CYCLOSPORINE PO SCH ×2 (08:08→20:54)
[2019-06-20] MEDS: METRONIDAZOLE 500MG TABLET PO SCH ×2 (08:09→20:57)
[2019-06-20] MEDS: MYCOPHENOLATE MOFETIL 250MG CAPSULE PO SCH ×2 (08:09→18:12)
[2019-06-20 08:30] VITALS: BP 105/69
[2019-06-20] MEDS ORDERED: CITRIC ACID/SODIUM CITRATE SOLN 30ML UDC PO SCH (09:00)
[2019-06-20] MEDS ORDERED: POTASSIUM CHLORIDE 20MEQ TABLET SR PO SCH (09:00)
[2019-06-20] MEDS: ACETAMINOPHEN 325MG TABLET PO PRN (10:50)
[2019-06-20 12:09] VITALS: BP 85/52
[2019-06-20] MEDS ORDERED: SODIUM CHLORIDE 0.9% 1,000 ML IV ONE (12:15)
[2019-06-20 12:57] VITALS: BP 119/53
[2019-06-20 20:00] VITALS: BP 98/65
[2019-06-20 23:10] LABS: PLATELET ESTIMATE NORMAL
[2019-06-21] MEDS: CEFEPIME 1,000 MG in DEXTROSE 5% WATER 50 ML IV SCH ×2 (05:06→17:53)
[2019-06-21 06:40] LABS: HEMATOCRIT. 33.7 % (42.0-52.0); MEAN CORPUSCULAR HEMOGLOBIN 28.6 pg (28.0-32.0); MEAN CORPUSCULAR VOLUME 87.7 fL (80.0-94.0); PLATELET 196 x1000/uL (130-400); RED BLOOD CELL COUNT 3.84 mill/uL (4.7-6.1); RED CELL DISTRIBUTION WIDTH 14.9 % (11.6-14.6)
[2019-06-21 08:00] VITALS: BP 102/57
[2019-06-21] MEDS: MYCOPHENOLATE MOFETIL 250MG CAPSULE PO SCH ×2 (08:33→16:50)
[2019-06-21] MEDS: METRONIDAZOLE 500MG TABLET PO SCH ×2 (08:33→21:36)
[2019-06-21] MEDS: CYCLOSPORINE PO SCH ×2 (08:33→21:37)
[2019-06-21] MEDS: PREDNISONE 10MG TABLET PO SCH (08:33)
[2019-06-21] MEDS: MIDODRINE HCL 2.5MG TABLET PO SCH ×2 (12:56→16:50)
[2019-06-21 15:27] LABS: PLATELET ESTIMATE NORMAL
[2019-06-21 20:00] VITALS: BP 139/62
[2019-06-22] MEDS: CEFEPIME 1,000 MG in DEXTROSE 5% WATER 50 ML IV SCH ×2 (05:02→17:05)
[2019-06-22 08:00] VITALS: BP 117/72
[2019-06-22] MEDS: CYCLOSPORINE PO SCH ×2 (09:34→21:34)
[2019-06-22] MEDS: MIDODRINE HCL 2.5MG TABLET PO SCH ×3 (09:35→17:05)
[2019-06-22] MEDS: PREDNISONE 10MG TABLET PO SCH (09:35)
[2019-06-22] MEDS: MYCOPHENOLATE MOFETIL 250MG CAPSULE PO SCH ×2 (09:35→17:05)
[2019-06-22] MEDS: METRONIDAZOLE 500MG TABLET PO SCH ×2 (09:35→21:37)
[2019-06-22 19:12] LABS: CLARITY URINE CLEAR (CLEAR); COLOR URINE DARK YELLOW (YELLOW); KETONES URINE NEGATIVE (NEGATIVE); LEUKOCYTE ESTERASE URINE NEGATIVE (NEGATIVE); NITRITE URINE NEGATIVE (NEGATIVE); OCCULT BLOOD URINE TRACE (NEGATIVE); PH URINE 5.5 (4.5-8.0); PROTEIN URINE 1+ (NEGATIVE); UROBILINOGEN URINE 0.2 E.U./dL (0.2-1.0)
[2019-06-22 20:00] VITALS: BP 115/77
[2019-06-23] MEDS: CEFEPIME 1,000 MG in DEXTROSE 5% WATER 50 ML IV SCH ×2 (06:04→18:05)
[2019-06-23 07:23] LABS: HEMATOCRIT. 33.1 % (42.0-52.0); HEMOGLOBIN. 10.7 g/dL (14.0-18.0); MEAN CORPUSCULAR HEMOGLOBIN 28.6 pg (28.0-32.0); MEAN PLATELET VOLUME 10.3 fl (7.4-10.4); PLATELET 185 x1000/uL (130-400); RED BLOOD CELL COUNT 3.76 mill/uL (4.7-6.1); RED CELL DISTRIBUTION WIDTH 15.1 % (11.6-14.6)
[2019-06-23 07:39] LABS: CHLORIDE 109 mEq/L (98-107)
[2019-06-23 07:48] LABS: PHOSPHORUS 3.1 mg/dL (2.5-4.9)
[2019-06-23 07:51] LABS: TOTAL IRON BINDING CAPACITY 153 ug/dL (250-450)
[2019-06-23 07:56] LABS: PROSTRATE SPECIFIC AG TOTAL 0.64 ng/mL (0.0-4.0)
[2019-06-23 07:59] LABS: FOLIC ACID (FOLATE) SERUM 13.2 ng/mL (>5.38)
[2019-06-23 08:04] VITALS: BP 124/73
[2019-06-23] MEDS: PREDNISONE 10MG TABLET PO SCH (08:50)
[2019-06-23] MEDS: MIDODRINE HCL 2.5MG TABLET PO SCH ×3 (08:50→18:05)
[2019-06-23] MEDS: CYCLOSPORINE PO SCH ×2 (08:50→21:00)
[2019-06-23] MEDS: METRONIDAZOLE 500MG TABLET PO SCH ×2 (08:50→21:00)
[2019-06-23] MEDS: MYCOPHENOLATE MOFETIL 250MG CAPSULE PO SCH ×2 (08:50→18:05)
[2019-06-23 17:50] LABS: PLATELET ESTIMATE NORMAL
[2019-06-23 20:00] VITALS: BP 113/68
[2019-06-24] MEDS: CEFEPIME 1,000 MG in DEXTROSE 5% WATER 50 ML IV SCH ×2 (05:31→17:24)
[2019-06-24] MEDS: MIDODRINE HCL 2.5MG TABLET PO SCH ×3 (08:15→16:04)
[2019-06-24] MEDS: PREDNISONE 10MG TABLET PO SCH (08:15)
[2019-06-24] MEDS: METRONIDAZOLE 500MG TABLET PO SCH ×2 (08:15→22:02)
[2019-06-24] MEDS: CYCLOSPORINE PO SCH ×2 (08:15→21:45)
[2019-06-24] MEDS: MYCOPHENOLATE MOFETIL 250MG CAPSULE PO SCH ×2 (08:15→16:04)
[2019-06-24 08:22] VITALS: BP 95/62
[2019-06-24 20:00] VITALS: BP 124/74
[2019-06-25 07:03] LABS: BASOPHILS % 0.7 % (0.0-2.0); EOSINOPHILS % 0.7 % (0.0-5.0); HEMATOCRIT. 34.5 % (42.0-52.0); HEMOGLOBIN. 11.4 g/dL (14.0-18.0); LYMPHOCYTES % 20.1 % (20.0-50.0); MEAN CORPUSCULAR HEMOGLOBIN 29.2 pg (28.0-32.0); MEAN CORPUSCULAR VOLUME 88.1 fL (80.0-94.0); MEAN PLATELET VOLUME 10.7 fl (7.4-10.4); MONOCYTES % 7.1 % (2.0-8.0); NEUTROPHILS % 71.4 % (40.0-76.0); PLATELET 170 x1000/uL (130-400); RED BLOOD CELL COUNT 3.92 mill/uL (4.7-6.1); RED CELL DISTRIBUTION WIDTH 15.1 % (11.6-14.6)
[2019-06-25 07:59] VITALS: BP 129/74
[2019-06-25] MEDS: CYCLOSPORINE PO SCH ×2 (08:10→21:00)
[2019-06-25] MEDS: PREDNISONE 10MG TABLET PO SCH (08:11)
[2019-06-25] MEDS: MIDODRINE HCL 2.5MG TABLET PO SCH ×3 (08:11→16:15)
[2019-06-25] MEDS: MYCOPHENOLATE MOFETIL 250MG CAPSULE PO SCH ×2 (08:11→16:15)
[2019-06-25] MEDS: TERBINAFINE HCL 1% CREAM 30GM TOP SCH (08:11)
[2019-06-25 20:00] VITALS: BP 115/70
[2019-06-26 05:08] LABS: 25-HYDROXY VITAMIN D3 8.2 ng/mL (.)
[2019-06-26 08:02] VITALS: BP 115/72
[2019-06-26] MEDS: MYCOPHENOLATE MOFETIL 250MG CAPSULE PO SCH ×2 (08:30→16:27)
[2019-06-26] MEDS: PREDNISONE 10MG TABLET PO SCH (08:31)
[2019-06-26] MEDS: TERBINAFINE HCL 1% CREAM 30GM TOP SCH (08:31)
[2019-06-26] MEDS: CYCLOSPORINE PO SCH ×2 (08:31→20:36)
[2019-06-26] MEDS: MIDODRINE HCL 2.5MG TABLET PO SCH ×3 (08:31→16:27)
[2019-06-26] MEDS ORDERED: ERGOCALCIFEROL 50000UNITS CAPSULE PO SCH (16:00)
[2019-06-26 20:00] VITALS: BP 115/71
[2019-06-26] MEDS: ACETAMINOPHEN 325MG TABLET PO PRN (20:36)
[2019-06-27] MEDS: ACETAMINOPHEN 325MG TABLET PO PRN (04:00)
[2019-06-27 08:00] VITALS: BP 122/80
[2019-06-27 08:21] LABS: BASOPHILS % 0.6 % (0.0-2.0); EOSINOPHILS % 0.8 % (0.0-5.0); HEMATOCRIT. 32.3 % (42.0-52.0); HEMOGLOBIN. 10.8 g/dL (14.0-18.0); LYMPHOCYTES % 20.7 % (20.0-50.0); MEAN CORPUSCULAR HEMOGLOBIN 29.3 pg (28.0-32.0); MEAN CORPUSCULAR VOLUME 87.2 fL (80.0-94.0); MEAN PLATELET VOLUME 9.9 fl (7.4-10.4); MONOCYTES % 7.3 % (2.0-8.0); NEUTROPHILS % 70.6 % (40.0-76.0); PLATELET 191 x1000/uL (130-400); RED CELL DISTRIBUTION WIDTH 15.6 % (11.6-14.6)
[2019-06-27] MEDS: MYCOPHENOLATE MOFETIL 250MG CAPSULE PO SCH ×2 (09:22→18:17)
[2019-06-27] MEDS: MIDODRINE HCL 2.5MG TABLET PO SCH ×3 (09:23→18:17)
[2019-06-27] MEDS: CYCLOSPORINE PO SCH ×2 (09:23→20:38)
[2019-06-27] MEDS: PREDNISONE 10MG TABLET PO SCH (09:23)
[2019-06-27] MEDS: TERBINAFINE HCL 1% CREAM 30GM TOP SCH (18:17)
[2019-06-27 20:00] VITALS: BP 102/60
[2019-06-28] MEDS: OMEPRAZOLE 20MG CAPSULE EXTENDED RELEASE PO SCH (06:08)
[2019-06-28 08:08] VITALS: BP 138/82
[2019-06-28] MEDS: PREDNISONE 10MG TABLET PO SCH (08:19)
[2019-06-28] MEDS: MYCOPHENOLATE MOFETIL 250MG CAPSULE PO SCH ×2 (08:19→16:44)
[2019-06-28] MEDS: CYCLOSPORINE PO SCH ×2 (08:19→22:10)
[2019-06-28] MEDS: MIDODRINE HCL 2.5MG TABLET PO SCH ×3 (08:19→16:44)
[2019-06-28] MEDS: TERBINAFINE HCL 1% CREAM 30GM TOP SCH (08:19)
[2019-06-28 20:00] VITALS: BP 111/73
[2019-06-29] MEDS: OMEPRAZOLE 20MG CAPSULE EXTENDED RELEASE PO SCH (06:55)
[2019-06-29 07:00] LABS: BASOPHILS % 0.4 % (0.0-2.0); EOSINOPHILS % 0.9 % (0.0-5.0); HEMATOCRIT. 36.3 % (42.0-52.0); HEMOGLOBIN. 12.1 g/dL (14.0-18.0); LYMPHOCYTES % 17.6 % (20.0-50.0); MEAN CORPUSCULAR HEMOGLOBIN 29.3 pg (28.0-32.0); MEAN CORPUSCULAR VOLUME 88.2 fL (80.0-94.0); MEAN PLATELET VOLUME 9.6 fl (7.4-10.4); MONOCYTES % 7.8 % (2.0-8.0); NEUTROPHILS % 73.3 % (40.0-76.0); PLATELET 186 x1000/uL (130-400); RED BLOOD CELL COUNT 4.12 mill/uL (4.7-6.1); RED CELL DISTRIBUTION WIDTH 15.5 % (11.6-14.6)
[2019-06-29 07:36] LABS: CHLORIDE 109 mEq/L (98-107)
[2019-06-29 08:41] VITALS: BP 124/80
[2019-06-29] MEDS: MIDODRINE HCL 2.5MG TABLET PO SCH ×3 (09:55→18:14)
[2019-06-29] MEDS: TERBINAFINE HCL 1% CREAM 30GM TOP SCH (09:55)
[2019-06-29] MEDS: PREDNISONE 10MG TABLET PO SCH (09:55)
[2019-06-29] MEDS: MYCOPHENOLATE MOFETIL 250MG CAPSULE PO SCH ×2 (09:55→18:13)
[2019-06-29] MEDS: CYCLOSPORINE PO SCH ×2 (09:56→21:00)
[2019-06-29 12:52] VITALS: BP 101/71
[2019-06-29 20:00] VITALS: BP 120/72
[2019-06-30 07:30] VITALS: BP 128/85
[2019-06-30] MEDS: PREDNISONE 10MG TABLET PO SCH (08:19)
[2019-06-30] MEDS: MYCOPHENOLATE MOFETIL 250MG CAPSULE PO SCH ×2 (08:20→16:34)
[2019-06-30] MEDS: FAMOTIDINE 20MG TABLET PO SCH ×2 (08:20→20:00)
[2019-06-30] MEDS: CYCLOSPORINE PO SCH ×2 (08:20→20:00)
[2019-06-30] MEDS: MIDODRINE HCL 2.5MG TABLET PO SCH ×3 (08:24→16:34)
[2019-06-30] MEDS: TERBINAFINE HCL 1% CREAM 30GM TOP SCH (08:27)
[2019-06-30 12:15] VITALS: BP 108/78
[2019-06-30 16:15] VITALS: BP 103/78
[2019-06-30 20:00] VITALS: BP 108/80
[2019-07-01] MEDS: MYCOPHENOLATE MOFETIL 250MG CAPSULE PO SCH ×2 (08:14→16:43)
[2019-07-01] MEDS: FAMOTIDINE 20MG TABLET PO SCH ×2 (08:14→20:26)
[2019-07-01] MEDS: CYCLOSPORINE PO SCH ×2 (08:14→20:26)
[2019-07-01] MEDS: PREDNISONE 10MG TABLET PO SCH (08:14)
[2019-07-01] MEDS: MIDODRINE HCL 2.5MG TABLET PO SCH ×3 (08:14→16:43)
[2019-07-01] MEDS: TERBINAFINE HCL 1% CREAM 30GM TOP SCH (08:15)
[2019-07-01 08:30] VITALS: BP 105/75
[2019-07-01 12:05] VITALS: BP 114/73
[2019-07-01 16:20] VITALS: BP 108/69
[2019-07-01 20:00] VITALS: BP 128/83
[2019-07-02 06:49] LABS: CHLORIDE 106 mEq/L (98-107)
[2019-07-02 07:01] LABS: PHOSPHORUS 2.9 mg/dL (2.5-4.9)
[2019-07-02 07:04] LABS: BASOPHILS % 0.5 % (0.0-2.0); EOSINOPHILS % 1.4 % (0.0-5.0); HEMATOCRIT. 33.3 % (42.0-52.0); HEMOGLOBIN. 11.3 g/dL (14.0-18.0); LYMPHOCYTES % 21.6 % (20.0-50.0); MEAN CORPUSCULAR HEMOGLOBIN 29.5 pg (28.0-32.0); MEAN PLATELET VOLUME 9.7 fl (7.4-10.4); MONOCYTES % 7.5 % (2.0-8.0); PLATELET 155 x1000/uL (130-400); RED BLOOD CELL COUNT 3.82 mill/uL (4.7-6.1); RED CELL DISTRIBUTION WIDTH 15.9 % (11.6-14.6)
[2019-07-02 08:00] VITALS: BP 117/76
[2019-07-02] MEDS: MIDODRINE HCL 2.5MG TABLET PO SCH ×2 (09:42→16:52)
[2019-07-02] MEDS: MYCOPHENOLATE MOFETIL 250MG CAPSULE PO SCH ×2 (09:43→16:52)
[2019-07-02] MEDS: PREDNISONE 10MG TABLET PO SCH (09:43)
[2019-07-02] MEDS: CYCLOSPORINE PO SCH (09:43)
[2019-07-02] MEDS: TERBINAFINE HCL 1% CREAM 30GM TOP SCH (09:44)
[2019-07-02 14:49] VITALS: BP 117/76
[2019-07-02] MEDS: FAMOTIDINE 20MG TABLET PO SCH (16:52)
== END 2019-07-02 17:30 | disposition home health service (06) | DRG 73 ==
PROVIDERS: ADMIT Physical Medicine & Rehabilitation Spinal Cord Injury Medicine; ATTEND Hospitalist
DX: G62.81 Critical illness polyneuropathy (principal); L89.154 Pressure ulcer of sacral region, stage 4; A41.52 Sepsis due to Pseudomonas; N18.6 End stage renal disease; G82.50 Quadriplegia, unspecified; G93.41 Metabolic encephalopathy; J18.9 Pneumonia, unspecified organism; R65.21 Severe sepsis with septic shock; J96.01 Acute respiratory failure with hypoxia; I12.0 Hypertensive chronic kidney disease with stage 5 chronic kidney disease or end stage renal disease; I69.351 Hemiplegia and hemiparesis following cerebral infarction affecting right dominant side; N17.9 Acute kidney failure, unspecified; T86.19 Other complication of kidney transplant; D68.9 Coagulation defect, unspecified; E87.2 Acidosis; E46 Unspecified protein-calorie malnutrition; D64.9 Anemia, unspecified; E11.22 Type 2 diabetes mellitus with diabetic chronic kidney disease; K52.9 Noninfective gastroenteritis and colitis, unspecified; R13.10 Dysphagia, unspecified; Y83.0 Surgical operation with transplant of whole organ as the cause of abnormal reaction of the patient, or of later complication, without mention of misadventure at the time of the procedure; Z99.2 Dependence on renal dialysis; Z86.61 Personal history of infections of the central nervous system; Z82.49 Family history of ischemic heart disease and other diseases of the circulatory system; E11.621 Type 2 diabetes mellitus with foot ulcer; R53.81 Other malaise; E55.9 Vitamin D deficiency, unspecified; E11.649 Type 2 diabetes mellitus with hypoglycemia without coma; I25.10 Atherosclerotic heart disease of native coronary artery without angina pectoris; K40.90 Unilateral inguinal hernia, without obstruction or gangrene, not specified as recurrent; M21.371 Foot drop, right foot; N40.1 Benign prostatic hyperplasia with lower urinary tract symptoms; N39.498 Other specified urinary incontinence; B35.3 Tinea pedis; B19.20 Unspecified viral hepatitis C without hepatic coma; E11.42 Type 2 diabetes mellitus with diabetic polyneuropathy; G89.29 Other chronic pain; Z68.20 Body mass index [BMI] 20.0-20.9, adult
CPT/HCPCS: 36415; 80048; 80053; 81003; 82140; 82306; 82607; 82728; 82746; 83540; 83550; 83735; 84100; 84134; 84153; 84443; 85025; 92523; 92610; 93970; 97110; 97116; 97162; 97166; 97530; 97535; J0692; J7060; J7512; J7517; G0103

== ENCOUNTER 2025-01-18 16:12 | Emergency (ER) | payer MEDICARE, OTHER ==
[~2025-01-18] VITALS: Ht 175.3 cm; Wt 64.0 kg
[~2025-01-18 16:12] MED LIST changes: -AMLO10TA4 PO; -AMLO10TA80 PO; -CYCL25CA PO; -DILT180T11 PO; +HYDR50TA39 PO; +METO-539 PO; -MYCO250C PO; -PRED5TAB48 PO; -TAMS-11 PO; +TAMS-54 PO
[2025-01-18 16:17] VITALS: O2SAT 98
[2025-01-18 17:04] LABS: BASOPHILS % 1.2 % (0.0-2.0); EOSINOPHILS % 3.9 % (0.0-5.0); HEMATOCRIT. 36.1 % (42.0-52.0); HEMOGLOBIN. 11.7 g/dL (14.0-18.0); LYMPHOCYTES % 30.7 % (20.0-50.0); MEAN PLATELET VOLUME 9.3 fl (7.4-10.4); MONOCYTES % 6.3 % (2.0-8.0); NEUTROPHILS % 57.9 % (40.0-76.0); PLATELET 90 x1000/uL (130-400); RED BLOOD CELL COUNT 3.90 mill/uL (4.7-6.1); RED CELL DISTRIBUTION WIDTH 19.1 % (11.6-14.6)
[2025-01-18 17:17] LABS: UREA NITROGEN BLOOD 23.0 mg/dL (9-23)
[2025-01-18 17:21] LABS: CREATININE 5.2 mg/dL (0.6-1.3)
[2025-01-18 18:52] LABS: TROPONIN I HIGH SENSITIVITY 45 ng/L (3.0-53)
[2025-01-18] MEDS: SODIUM CHLORIDE 0.9% 250 ML IV ONE (20:06)
[2025-01-18 21:37] VITALS: BP 114/65; PULSE 98; RESP 18; TEMP 36.8; O2SAT 95
== END 2025-01-18 21:52 | disposition home or self-care (01) ==
LOC: ER 16:12
DX: R00.0 Tachycardia, unspecified (principal); I13.11 Hypertensive heart and chronic kidney disease without heart failure, with stage 5 chronic kidney disease, or end stage renal disease; N18.6 End stage renal disease; Z79.899 Other long term (current) drug therapy; Z99.2 Dependence on renal dialysis
CPT/HCPCS: 36415; 71045; 80048; 84443; 84484; 85025; 85379; 93005; 93970; 99285